=== PATIENT | male | born 1955 | race Two or more races ===

== ENCOUNTER 2021-12-05 11:20 | Inpatient (IN) | payer OTHER ==
[~2021-12-05] VITALS: Ht 175.3 cm; Wt 100.0 kg
[2021-12-05] MEDS ORDERED: ASPirin 81 mg TAB PO ONE ×2 (11:30→15:45)
[2021-12-05] MEDS ORDERED: NITROGLYCERIN 0.4 MG SL TAB SL ONE (14:45)
[2021-12-05 14:59] LABS: Basophils # (auto) 0.1 10 ^3/uL (0-0.2); Basophils % (auto) 0.7 % (0.0-2.0); Eosinophils # (auto) 0.1 10 ^3/uL (0-0.8); Eosinophils % (auto) 0.7 % (0.0-7.0); Hemoglobin 14.2 g/dL (13.5-17.5); Lymphocytes # (auto) 0.6 10 ^3/uL (0.4-5.4); Lymphocytes % (auto) 6.9 % (10.0-50.0); Mean Corpuscular Hemoglobin 31.8 pg (28.0-32.0); Mean Corpuscular Hgb Conc. 34.6 g/dL (32.0-36.0); Mean Corpuscular Volume 91.7 fL (80.0-100.0); Monocytes # (auto) 0.5 10 ^3/uL (0-1.3); Monocytes % (auto) 6.5 % (0.0-12.0); Neutrophils % (auto) 85.2 % (37.0-80.0); Nucleated Red Blood Cells % 0.1 %; Red Blood Cells 4.47 10^6/uL (4.5-5.90); Red Cell Distribution Width 13.2 % (11.8-14.3); White Blood Cell 8.2 10^3/uL (4.4-10.8)
[2021-12-05 15:09] LABS: Calcium 9.2 mg/dL (8.5-10.1)
[2021-12-05 15:20] LABS: BUN/Creatinine Ratio 7.8; Bilirubin, Total 0.8 mg/dL (0.2-1.0); Total Protein 6.8 g/dL (6.4-8.2)
[2021-12-05] MEDS ORDERED: CLOPIDOGREL BISULFATE 75 MG TAB PO ONE (15:45)
[2021-12-05] MEDS ORDERED: MORPHINE SULFATE 4 MG/ML SYR/VIAL IV ONE (16:00)
[2021-12-05] MEDS ORDERED: DOCUSATE SOD 100 MG CAP PO PRN (21:15)
[2021-12-05] MEDS ORDERED: ONDANSETRON HCL 4 MG/2 ML VIAL IV PRN (21:15)
[2021-12-05] MEDS ORDERED: HYDROcodone-ACET 5/325MG TAB PO PRN (21:15)
[2021-12-05] MEDS ORDERED: hydrALAZINE HCL 20 MG/ML VL IV PRN (21:15)
[2021-12-05] MEDS ORDERED: MORPHINE SULFATE 4 MG/ML SYR/VIAL IV PRN (21:15)
[2021-12-05] MEDS ORDERED: FAMOTIDINE (10MG/ML) 2ML VL IV SCH (22:00)
[2021-12-05] MEDS ORDERED: MORPHINE SULFATE INJECTION 2 MG/ML SYRG IV PRN (22:15)
[2021-12-05] MEDS: FAMOTIDINE (10MG/ML) 2ML VL IV SCH (22:57)
[2021-12-05] MEDS: SOD CHL 0.45% 1,000 ML IV SCH (22:57)
[2021-12-06] VITALS (12 sets, daily range): BP systolic 139–195; BP diastolic 65–115
[2021-12-06] MEDS ORDERED: ZOLPIDEM TARTRATE 5 MG TAB PO ONE (00:15)
[2021-12-06] MEDS ORDERED: ALUM & MAG HYDROX-SIMETH LIQ(MAALOX) 30 ML PO ONE ×2 (00:15→03:00)
[2021-12-06] MEDS: NITROGLYCERIN 0.4 MG SL TAB SL PRN ×3 (07:09→20:47)
[2021-12-06 07:17] LABS: Basophils # (auto) 0.1 10 ^3/uL (0-0.2); Basophils % (auto) 1.1 % (0.0-2.0); Eosinophils # (auto) 0.1 10 ^3/uL (0-0.8); Eosinophils % (auto) 1.3 % (0.0-7.0); Hematocrit 36.9 % (41.0-53.0); Lymphocytes # (auto) 0.6 10 ^3/uL (0.4-5.4); Lymphocytes % (auto) 10.4 % (10.0-50.0); Mean Corpuscular Hemoglobin 32.4 pg (28.0-32.0); Mean Corpuscular Hgb Conc. 35.3 g/dL (32.0-36.0); Mean Corpuscular Volume 91.7 fL (80.0-100.0); Monocytes # (auto) 0.6 10 ^3/uL (0-1.3); Monocytes % (auto) 11.3 % (0.0-12.0); Neutrophils # (auto) 4.3 10 ^3/uL (1.6-8.6); Neutrophils % (auto) 75.9 % (37.0-80.0); Red Blood Cells 4.02 10^6/uL (4.5-5.90); Red Cell Distribution Width 12.9 % (11.8-14.3); White Blood Cell 5.7 10^3/uL (4.4-10.8)
[2021-12-06 07:31] LABS: Albumin 2.7 g/dL (3.4-5.0); Potassium 3.9 mmol/L (3.5-5.1)
[2021-12-06 07:40] LABS: BUN/Creatinine Ratio 8.8; Bilirubin, Total 0.7 mg/dL (0.2-1.0); Total Protein 6.1 g/dL (6.4-8.2)
[2021-12-06] MEDS: ASPirin 81 mg TAB PO SCH (08:25)
[2021-12-06] MEDS: ATORVASTATIN 20 MG TAB PO SCH (08:26)
[2021-12-06] MEDS ORDERED: ENOXAPARIN SOD 100 MG/1 ML SYRINGE SC SCH (10:00)
[2021-12-06] MEDS ORDERED: METOPROLOL SUCCINATE XL 50 MG TAB PO ONE (10:00)
[2021-12-06 10:12] LABS: INR 1.09 (0.9-1.15); Partial Thromboplastin Time 29.8 sec (23.6-33.0)
[2021-12-06] MEDS ORDERED: ANGIOMAX 250 MG VIAL IV ONE (12:39)
[2021-12-06] MEDS ORDERED: VERAPAMIL 2.5MG/ML INJ 2ML VIAL IV ONE (12:39)
[2021-12-06] MEDS ORDERED: HEPARIN SODIUM (PORCINE) 5000 UNITS/ML 1ML VIAL ONE (12:39)
[2021-12-06] MEDS ORDERED: fentaNYL CITRATE 100 MCG/2 ML VL ONE (12:40)
[2021-12-06] MEDS ORDERED: LIDOCAINE 2%HCL (LOCAL ANESTH.) INJ 20ML MDV ONE (12:40)
[2021-12-06] MEDS ORDERED: MIDAZOLAM HCL 2MG/2ML 2ml VIAL (1mg/ml) ONE (12:40)
[2021-12-06] MEDS ORDERED: SODIUM CHL 0.9% 0 ML ONE (12:40)
[2021-12-06] MEDS ORDERED: IODIXANOL 320MG/ML 100ML BTL IV ONE (12:41)
[2021-12-06] MEDS ORDERED: hydrALAZINE HCL 10 MG TAB PO ONE (18:15)
[2021-12-06] MEDS ORDERED: ASPirin 81 mg TAB PO ONE (18:30)
[2021-12-06] MEDS: ZOLPIDEM TARTRATE 5 MG TAB PO SCH (20:46)
[2021-12-06] MEDS: SOD CHL 0.45% 1,000 ML IV SCH (23:55)
[2021-12-07] MEDS: SOD CHL 0.45% 1,000 ML IV SCH ×2 (02:07→13:19)
[2021-12-07] MEDS: ALBUTEROL SULF 2.5 MG/0.5ML(0.5%) NEB SOLN NEB PRN ×2 (02:30→19:52)
[2021-12-07 06:08] VITALS: BP 150/98
[2021-12-07 09:00] VITALS: BP 150/89
[2021-12-07] MEDS: ENOXAPARIN SOD 120 MG/0.8 ML SYRINGE SC SCH (10:07)
[2021-12-07] MEDS: ASPirin 81 mg TAB PO SCH (10:07)
[2021-12-07] MEDS: ATORVASTATIN 20 MG TAB PO SCH (10:07)
[2021-12-07] MEDS: NITROGLYCERIN 0.4 MG SL TAB SL PRN (10:12)
[2021-12-07] MEDS: NIFEdipine ER 30 MG TAB PO SCH (11:54)
[2021-12-07 13:00] VITALS: BP 159/95
[2021-12-07 17:00] VITALS: BP 170/98
[2021-12-07] MEDS: FAMOTIDINE (10MG/ML) 2ML VL IV SCH (21:27)
[2021-12-07] MEDS: cloNIDine HCL 0.1 MG TAB PO PRN (21:57)
[2021-12-07 22:00] VITALS: BP 164/98
[2021-12-07] MEDS ORDERED: ALPRAZolam 0.5 MG TAB PO SCH (22:00)
[2021-12-07] MEDS: ZOLPIDEM TARTRATE 5 MG TAB PO SCH (22:37)
[2021-12-08] MEDS: SOD CHL 0.45% 1,000 ML IV SCH ×2 (02:46→15:55)
[2021-12-08] MEDS: ALBUTEROL SULF 2.5 MG/0.5ML(0.5%) NEB SOLN NEB PRN ×2 (03:36→19:32)
[2021-12-08 05:00] VITALS: BP 117/67
[2021-12-08 07:59] LABS: Basophils # (auto) 0.1 10 ^3/uL (0-0.2); Basophils % (auto) 1.3 % (0.0-2.0); Eosinophils # (auto) 0.2 10 ^3/uL (0-0.8); Eosinophils % (auto) 4.1 % (0.0-7.0); Hematocrit 34.7 % (41.0-53.0); Hemoglobin 11.9 g/dL (13.5-17.5); Lymphocytes # (auto) 1.2 10 ^3/uL (0.4-5.4); Lymphocytes % (auto) 25.2 % (10.0-50.0); Mean Corpuscular Hemoglobin 31.9 pg (28.0-32.0); Mean Corpuscular Hgb Conc. 34.4 g/dL (32.0-36.0); Mean Corpuscular Volume 92.9 fL (80.0-100.0); Monocytes # (auto) 0.5 10 ^3/uL (0-1.3); Monocytes % (auto) 9.5 % (0.0-12.0); Neutrophils # (auto) 2.9 10 ^3/uL (1.6-8.6); Neutrophils % (auto) 59.9 % (37.0-80.0); Nucleated Red Blood Cells % 0.1 %; Red Blood Cells 3.74 10^6/uL (4.5-5.90); Red Cell Distribution Width 12.9 % (11.8-14.3); White Blood Cell 4.8 10^3/uL (4.4-10.8)
[2021-12-08 08:12] LABS: Potassium 4.3 mmol/L (3.5-5.1)
[2021-12-08 08:18] LABS: Albumin 2.4 g/dL (3.4-5.0); BUN/Creatinine Ratio 12.1; Bilirubin, Total 0.4 mg/dL (0.2-1.0); Calcium 8.8 mg/dL (8.5-10.1); Total Protein 5.1 g/dL (6.4-8.2)
[2021-12-08 09:00] VITALS: BP 101/80
[2021-12-08] MEDS: ENOXAPARIN SOD 120 MG/0.8 ML SYRINGE SC SCH (10:00)
[2021-12-08] MEDS: NIFEdipine ER 30 MG TAB PO SCH (10:00)
[2021-12-08] MEDS: ASPirin 81 mg TAB PO SCH (10:00)
[2021-12-08] MEDS: ATORVASTATIN 20 MG TAB PO SCH (10:00)
[2021-12-08] MEDS ORDERED: CARVEDILOL 12.5 MG TAB PO ONE (11:15)
[2021-12-08 13:00] VITALS: BP 112/75
[2021-12-08] MEDS: NITROGLYCERIN 0.4 MG SL TAB SL PRN (15:24)
[2021-12-08] MEDS ORDERED: NITROGLYCERIN 0.4MG/HR TOPICAL PATCH TD ONE (16:15)
[2021-12-08] MEDS: ALPRAZolam 0.5 MG TAB PO PRN (16:56)
[2021-12-08 17:00] VITALS: BP 105/60
[2021-12-08 17:26] LABS: Protein, Urine 501.5 mg/dL (0.0-11.9)
[2021-12-08] MEDS: BUDESONIDE (INHALATION) 0.5 MG/2 ML NEB NEB SCH (19:32)
[2021-12-08] MEDS: CARVEDILOL 12.5 MG TAB PO SCH (21:17)
[2021-12-08 22:00] VITALS: BP 130/73
[2021-12-08] MEDS: ZOLPIDEM TARTRATE 5 MG TAB PO SCH (22:00)
[2021-12-08] MEDS: ACETAMINOPHEN 325 MG TAB PO PRN (22:01)
[2021-12-09 05:00] VITALS: BP 139/84
[2021-12-09] MEDS: SOD CHL 0.45% 1,000 ML IV SCH ×3 (05:15→21:00)
[2021-12-09] MEDS: ALPRAZolam 0.5 MG TAB PO PRN ×2 (06:16→21:20)
[2021-12-09 08:00] VITALS: BP 157/91
[2021-12-09 09:00] VITALS: BP 157/91
[2021-12-09] MEDS: ALBUTEROL SULF 2.5 MG/0.5ML(0.5%) NEB SOLN NEB PRN ×2 (10:17→22:45)
[2021-12-09] MEDS: BUDESONIDE (INHALATION) 0.5 MG/2 ML NEB NEB SCH ×2 (10:17→22:46)
[2021-12-09] MEDS: NIFEdipine ER 30 MG TAB PO SCH (10:22)
[2021-12-09] MEDS: ASPirin 81 mg TAB PO SCH (10:22)
[2021-12-09] MEDS: NITROGLYCERIN 0.4MG/HR TOPICAL PATCH TD SCH (10:24)
[2021-12-09] MEDS: CARVEDILOL 12.5 MG TAB PO SCH ×2 (10:24→21:22)
[2021-12-09] MEDS: ATORVASTATIN 20 MG TAB PO SCH (10:25)
[2021-12-09] MEDS: ENOXAPARIN SOD 120 MG/0.8 ML SYRINGE SC SCH (10:25)
[2021-12-09 12:14] LABS: Potassium 4.2 mmol/L (3.5-5.1)
[2021-12-09 12:37] LABS: Albumin 2.6 g/dL (3.4-5.0); Bilirubin, Total 0.4 mg/dL (0.2-1.0); Calcium 9.1 mg/dL (8.5-10.1); Total Protein 5.5 g/dL (6.4-8.2)
[2021-12-09 13:00] VITALS: BP 156/79
[2021-12-09 17:00] VITALS: BP 127/73
[2021-12-09] MEDS: ZOLPIDEM TARTRATE 5 MG TAB PO SCH (21:22)
[2021-12-09] MEDS: FAMOTIDINE (10MG/ML) 2ML VL IV SCH (21:23)
[2021-12-09 22:00] VITALS: BP 152/88
[2021-12-09] MEDS: ACETAMINOPHEN 325 MG TAB PO PRN (23:36)
[2021-12-10 04:20] VITALS: BP 146/80
[2021-12-10] MEDS: BUDESONIDE (INHALATION) 0.5 MG/2 ML NEB NEB SCH ×2 (05:59→20:33)
[2021-12-10] MEDS: ALBUTEROL SULF 2.5 MG/0.5ML(0.5%) NEB SOLN NEB PRN ×2 (05:59→20:33)
[2021-12-10 07:04] LABS: Potassium 4.3 mmol/L (3.5-5.1)
[2021-12-10 07:09] LABS: BUN/Creatinine Ratio 12.8; Calcium 8.8 mg/dL (8.5-10.1)
[2021-12-10 09:00] VITALS: BP 169/96
[2021-12-10] MEDS: ASPirin 81 mg TAB PO SCH (09:07)
[2021-12-10] MEDS: ATORVASTATIN 20 MG TAB PO SCH (09:09)
[2021-12-10] MEDS: ENOXAPARIN SOD 120 MG/0.8 ML SYRINGE SC SCH (09:10)
[2021-12-10] MEDS: NIFEdipine ER 30 MG TAB PO SCH (09:28)
[2021-12-10] MEDS: CARVEDILOL 12.5 MG TAB PO SCH ×2 (09:28→21:53)
[2021-12-10] MEDS: NITROGLYCERIN 0.4MG/HR TOPICAL PATCH TD SCH (09:29)
[2021-12-10] MEDS: ALPRAZolam 0.5 MG TAB PO PRN ×2 (09:29→21:52)
[2021-12-10] MEDS ORDERED: ACETYLCYSTEINE ORAL for CIN 20%(200MG/ML) 4ML PO SCH (10:00)
[2021-12-10] MEDS: ACETAMINOPHEN 325 MG TAB PO PRN (17:18)
[2021-12-10 18:53] VITALS: BP 142/88
[2021-12-10] MEDS: SOD CHL 0.45% 1,000 ML IV SCH (21:15)
[2021-12-10] MEDS: ZOLPIDEM TARTRATE 5 MG TAB PO SCH (21:53)
[2021-12-10 22:00] VITALS: BP 161/96
[2021-12-11 05:00] VITALS: BP 149/67
[2021-12-11 05:41] LABS: Basophils # (auto) 0.1 10 ^3/uL (0-0.2); Basophils % (auto) 1.3 % (0.0-2.0); Eosinophils # (auto) 0.2 10 ^3/uL (0-0.8); Eosinophils % (auto) 4.1 % (0.0-7.0); Hematocrit 37.2 % (41.0-53.0); Hemoglobin 12.7 g/dL (13.5-17.5); Lymphocytes # (auto) 1.4 10 ^3/uL (0.4-5.4); Lymphocytes % (auto) 30.7 % (10.0-50.0); Mean Corpuscular Hgb Conc. 34.2 g/dL (32.0-36.0); Mean Corpuscular Volume 90.7 fL (80.0-100.0); Monocytes # (auto) 0.3 10 ^3/uL (0-1.3); Monocytes % (auto) 6.3 % (0.0-12.0); Neutrophils # (auto) 2.6 10 ^3/uL (1.6-8.6); Neutrophils % (auto) 57.6 % (37.0-80.0); Nucleated Red Blood Cells % 0.1 %; Red Cell Distribution Width 12.8 % (11.8-14.3); White Blood Cell 4.5 10^3/uL (4.4-10.8)
[2021-12-11 05:59] LABS: INR 1.07 (0.9-1.15); Partial Thromboplastin Time 30.5 sec (23.6-33.0)
[2021-12-11 05:59] LABS: Calcium 8.8 mg/dL (8.5-10.1); Potassium 4.4 mmol/L (3.5-5.1)
[2021-12-11 06:02] LABS: BUN/Creatinine Ratio 11.1
[2021-12-11] MEDS: BUDESONIDE (INHALATION) 0.5 MG/2 ML NEB NEB SCH ×2 (08:05→20:02)
[2021-12-11] MEDS ORDERED: ANGIOMAX 250 MG VIAL IV ONE (08:38)
[2021-12-11] MEDS ORDERED: fentaNYL CITRATE 100 MCG/2 ML VL ONE (08:38)
[2021-12-11] MEDS ORDERED: MIDAZOLAM HCL 2MG/2ML 2ml VIAL (1mg/ml) ONE (08:38)
[2021-12-11] MEDS ORDERED: SODIUM CHL 0.9% 0 ML ONE (08:39)
[2021-12-11 09:00] VITALS: BP 167/103
[2021-12-11] MEDS ORDERED: IODIXANOL 320MG/ML 100ML BTL IV ONE ×3 (09:01→10:52)
[2021-12-11] MEDS ORDERED: LIDOCAINE 2%HCL (LOCAL ANESTH.) INJ 20ML MDV ONE (09:01)
[2021-12-11] MEDS ORDERED: HEPARIN SODIUM (PORCINE) 5000 UNITS/ML 1ML VIAL ONE ×2 (09:03→10:17)
[2021-12-11] MEDS: ENOXAPARIN SOD 120 MG/0.8 ML SYRINGE SC SCH (09:33)
[2021-12-11] MEDS ORDERED: MORPHINE SULFATE INJECTION 2 MG/ML SYRG IV PRN (09:45)
[2021-12-11] MEDS: ATORVASTATIN 20 MG TAB PO SCH (10:00)
[2021-12-11] MEDS: ACETYLCYSTEINE 10 %(100MG/ML) SOL 4ML PO SCH ×2 (10:00→13:38)
[2021-12-11] MEDS: NITROGLYCERIN 0.4MG/HR TOPICAL PATCH TD SCH (10:00)
[2021-12-11] MEDS: NIFEdipine ER 30 MG TAB PO SCH ×2 (10:00→17:35)
[2021-12-11] MEDS: CARVEDILOL 12.5 MG TAB PO SCH ×2 (10:00→22:13)
[2021-12-11] MEDS ORDERED: TICAGRELOR 90 MG TAB ONE (10:58)
[2021-12-11] MEDS ORDERED: ASPirin 81 mg TAB ONE (10:58)
[2021-12-11 13:00] VITALS: BP 96/70
[2021-12-11] MEDS ORDERED: RANOLAZINE ER 500 MG TAB PO ONE (13:30)
[2021-12-11] MEDS: ALPRAZolam 0.5 MG TAB PO PRN ×2 (13:39→13:45)
[2021-12-11] MEDS: ALBUTEROL SULF 2.5 MG/0.5ML(0.5%) NEB SOLN NEB PRN ×2 (14:25→20:02)
[2021-12-11] MEDS: ASPirin 81 mg TAB PO SCH (15:24)
[2021-12-11] MEDS: SOD CHL 0.45% 1,000 ML IV SCH (15:24)
[2021-12-11 17:00] VITALS: BP 162/99
[2021-12-11] MEDS: cloNIDine HCL 0.1 MG TAB PO PRN (18:42)
[2021-12-11 22:00] VITALS: BP 162/76
[2021-12-11] MEDS: RANOLAZINE ER 500 MG TAB PO SCH ×2 (22:00→22:07)
[2021-12-11] MEDS: ZOLPIDEM TARTRATE 5 MG TAB PO SCH (22:06)
[2021-12-12 05:00] VITALS: BP 118/62
[2021-12-12] MEDS: BUDESONIDE (INHALATION) 0.5 MG/2 ML NEB NEB SCH (07:47)
[2021-12-12 08:26] LABS: Albumin 2.8 g/dL (3.4-5.0); Calcium 9.1 mg/dL (8.5-10.1); Potassium 4.6 mmol/L (3.5-5.1)
[2021-12-12 08:31] LABS: BUN/Creatinine Ratio 10.4; Bilirubin, Total 0.5 mg/dL (0.2-1.0); Total Protein 6.5 g/dL (6.4-8.2)
[2021-12-12] MEDS: SOD CHL 0.45% 1,000 ML IV SCH (08:47)
[2021-12-12 09:00] VITALS: BP 142/86
[2021-12-12] MEDS ORDERED: TICA90TA PO (09:49)
[2021-12-12] MEDS ORDERED: ASPI1CHW15 PO (09:49)
[2021-12-12] MEDS ORDERED: CAR125T PO (09:49)
[2021-12-12] MEDS ORDERED: ATOR20TA50 PO (09:49)
[2021-12-12] MEDS ORDERED: TICAGRELOR 90 MG TAB PO SCH (10:00)
[2021-12-12] MEDS: ATORVASTATIN 20 MG TAB PO SCH (10:57)
[2021-12-12] MEDS: RANOLAZINE ER 500 MG TAB PO SCH (10:57)
[2021-12-12] MEDS: ASPirin 81 mg TAB PO SCH (10:58)
[2021-12-12] MEDS: NITROGLYCERIN 0.4MG/HR TOPICAL PATCH TD SCH (11:00)
[2021-12-12] MEDS: NIFEdipine ER 30 MG TAB PO SCH (11:01)
[2021-12-12] MEDS: CARVEDILOL 12.5 MG TAB PO SCH (11:01)
[2021-12-12] MEDS ORDERED: FUROSEMIDE 40 MG/4 ML VIAL IV ONE (12:15)
[2021-12-12 13:00] VITALS: BP 147/84
[2021-12-12 17:00] VITALS: BP 120/62
[2021-12-12 17:31] VITALS: BP 120/62
== END 2021-12-12 18:50 | disposition home or self-care (01) | DRG 216 ==
LOC: ER 11:20 → TELE 22:13 → TELE-WESTW 12-06 15:06
PROVIDERS: ADMIT Nurse Practitioner Family; ATTEND Internal Medicine
PROC: 4A023N7 Measurement of Cardiac Sampling and Pressure, Left Heart, Percutaneous Approach (ICD-10-PCS; 2021-12-06)
PROC: B211YZZ Fluoroscopy of Multiple Coronary Arteries using Other Contrast (ICD-10-PCS; 2021-12-06)
PROC: B215YZZ Fluoroscopy of Left Heart using Other Contrast (ICD-10-PCS; 2021-12-06)
PROC: 027034Z Dilation of Coronary Artery, One Artery with Drug-eluting Intraluminal Device, Percutaneous Approach (ICD-10-PCS; principal; 2021-12-11)
PROC: 02HA3RJ Insertion of Short-term External Heart Assist System into Heart, Intraoperative, Percutaneous Approach (ICD-10-PCS; 2021-12-11)
PROC: 5A0221D Assistance with Cardiac Output using Impeller Pump, Continuous (ICD-10-PCS; 2021-12-11)
PROC: 02C03Z7 Extirpation of Matter from Coronary Artery, One Artery, Orbital Atherectomy Technique, Percutaneous Approach (ICD-10-PCS; 2021-12-11)
PROC: B240ZZ3 Ultrasonography of Single Coronary Artery, Intravascular (ICD-10-PCS; 2021-12-11)
DX: I21.4 Non-ST elevation (NSTEMI) myocardial infarction (principal); U07.1 COVID-19; J12.82 Pneumonia due to coronavirus disease 2019; I50.23 Acute on chronic systolic (congestive) heart failure; N17.9 Acute kidney failure, unspecified; I13.0 Hypertensive heart and chronic kidney disease with heart failure and stage 1 through stage 4 chronic kidney disease, or unspecified chronic kidney disease; J44.0 Chronic obstructive pulmonary disease with (acute) lower respiratory infection; N18.4 Chronic kidney disease, stage 4 (severe); T82.855A Stenosis of coronary artery stent, initial encounter; E11.65 Type 2 diabetes mellitus with hyperglycemia; D63.1 Anemia in chronic kidney disease; E11.22 Type 2 diabetes mellitus with diabetic chronic kidney disease; E78.5 Hyperlipidemia, unspecified; I25.10 Atherosclerotic heart disease of native coronary artery without angina pectoris; I48.91 Unspecified atrial fibrillation; Y83.1 Surgical operation with implant of artificial internal device as the cause of abnormal reaction of the patient, or of later complication, without mention of misadventure at the time of the procedure; R53.81 Other malaise; Z72.0 Tobacco use; Z82.49 Family history of ischemic heart disease and other diseases of the circulatory system; Z95.1 Presence of aortocoronary bypass graft; Z95.5 Presence of coronary angioplasty implant and graft
CPT/HCPCS: 36415; 36600; 71045; 71046; 76775; 80048; 80053; 82570; 82805; 83036; 83880; 84156; 84300; 84484; 85025; 85379; 85610; 85730; 87426; 93005; 93306; 94640; 99152; 99153; 99291; C1751; C1769; C1874; C1887; G0378; J2250; J2405; J3490; Q9967